=== PATIENT | female | born 2000 | race Asian ===

== ENCOUNTER 2021-05-02 11:23 | Emergency (ER) | payer OTHER, MEDICAID, SELFPAY ==
[2021-05-02 11:47] VITALS: BP 150/91; PULSE 71; RESP 16; TEMP 36.6; O2SAT 99; BMI 23.3
--- NOTE | 2021-05-02 12:35 | ED.FEMALEGU ---
HPI - Female Genitourinary <Roberto Ching PA-C - Last Filed: 05/02/21 15:27> General Chief complaint: Urogenital-Female Stated complaint: Poss UTI but now has chills and cramps/spotting Time Seen by Provider: 05/02/21 12:03 Source: patient Mode of arrival: Family Vehicle Limitations: no limitations History of Present Illness HPI Narrative: Ameena presents today with chief complaint of burning with urination increased frequency of urination that started 2 days ago. She also had associated symptoms of chills today. She has had a urinary tract infection in the past and is concerned that she may have 1 now. She reports lower abdominal cramping but states that she is currently ovulating so attributes the cramping to that. She denies any significant nausea, vomiting, vaginal irritation, vaginal discharge, rash, diarrhea, constipation or any other acute concerns or complaints at this time. Related Data Allergies Allergy/AdvReac Type Severity Reaction Status Date / Time No Known Drug Allergies Allergy Verified 05/02/21 11:46 Review of Systems <Roberto Ching PA-C - Last Filed: 05/02/21 15:27> Review of Systems Narrative: As per HPI Patient History <Roberto Ching PA-C - Last Filed: 05/02/21 15:27> alcohol intake frequency: 0-2 drinks per day Alcohol type: hard liquor Substance Use Type: does not use Exam <BEBA Sinclair Last Filed: 05/02/21 15:27> Narrative Exam Narrative: Exam Narrative: Const General: cooperative, healthy appearing, comfortable, no acute distress, well developed and well groomed Nutritional Appearance: average body habitus Orientation: alert and oriented x3 HENMT Head: normal to inspection and atraumatic Ears: hearing grossly normal bilaterally Nose: external nose normal and nares normal Face and sinus: normal facial exam Neck Neck: normal visual inspection and supple Resp Effort & Inspection: normal respiratory effort, able to speak in complete sentences, no audible wheezes, not labored, no nasal flaring and no respiratory distress GI Normal to inspection, nondistended, normal bowel sounds, nontender to palpation No CVA tenderness Neuro General: alert, oriented x3, gait normal, tone normal and moves all extremities Cognition: normal cognition Speech: speech normal Gait: normal gait Psych Appearance: grossly normal and well kempt Mental Status: mental status grossly normal Speech and Movement: speech and movement normal Mood: congruent mood Affect: normal affect Initial Vital Signs Initial Vital Signs: Vital Signs Temperature 97.9 F 05/02/21 11:47 Pulse Rate 71 05/02/21 11:47 Respiratory Rate 16 05/02/21 11:47 Blood Pressure 150/91 H 05/02/21 11:47 Pulse Oximetry 99 05/02/21 11:47 <Davina Maldonado MD - Last Filed: 05/03/21 08:43> Initial Vital Signs Initial Vital Signs: Vital Signs Temperature 97.9 F 05/02/21 11:47 Pulse Rate 71 05/02/21 11:47 Respiratory Rate 16 05/02/21 11:47 Blood Pressure 150/91 H 05/02/21 11:47 Pulse Oximetry 99 05/02/21 11:47 Course <Roberto Ching PA-C - Last Filed: 05/02/21 15:27> Orders Ordered: Discontinued Medications Azithromycin (Azithromycin 250 Mg Tablet) 1,000 mg PO NOW ONE Stop: 05/02/21 15:20 Last Admin: 05/02/21 15:24 Dose: 1,000 mg Documented by: ATAYLOR Vital Signs Vital signs: Vital Signs - 8 hr 05/02/21 11:47 Temperature 97.9 F Pulse Rate 71 Respiratory Rate 16 Blood Pressure 150/91 H Pulse Oximetry 99 <Davina Maldonado MD - Last Filed: 05/03/21 08:43> Orders Ordered: Discontinued Medications Azithromycin (Azithromycin 250 Mg Tablet) 1,000 mg PO NOW ONE Stop: 05/02/21 15:20 Last Admin: 05/02/21 15:24 Dose: 1,000 mg Documented by: ATAYLOR Vital Signs Vital signs: Vital Signs - 8 hr 05/02/21 11:47 Temperature 97.9 F Pulse Rate 71 Respiratory Rate 16 Blood Pressure 150/91 H Pulse Oximetry 99 MDM - Female Genitourinary <Roberto Ching PA-C - Last Filed: 05/02/21 15:27> Lab Data Labs: Lab Results 05/02/21 Range/Units 12:49 Ur Chlamydia DNA (PCR) Detected H N gonorrhoeae DNA (PCR) Not detected Point of Care Testing Test Results Negative Urine Dip Bedside Urine Glucose Negative Bedside Urine Bilirubin - Negative Bedside Urine Ketone - Negative Urine Specific [place] 1.020 Bedside Urine Occult Blood - Negative Bedside Urine pH 6 Bedside Urine Protein - Negative Bedside Urine Urobilinogen - Negative Bedside Urine Nitrite - Negative Bedside Urine Leukocytes - Negative Esterase MDM Narrative Medical decision making narrative: Urine is grossly normal at this time. Physical examination is also grossly normal. She tested positive for chlamydia and was treated with azithromycin here in the emergency department. Wet prep was negative and she tested negative for gonorrhea. Return precautions were discussed with the patient. Patient verbalizes understanding and agrees to plan and has no further concerns at this time. Thank you A [id number] system was used with the dictation of this note. Please disregard any spelling or grammatical errors. <Davina Maldonado MD - Last Filed: 05/03/21 08:43> Lab Data Labs: Lab Results 05/02/21 Range/Units 12:49 Ur Chlamydia DNA (PCR) Detected H N gonorrhoeae DNA (PCR) Not detected Point of Care Testing Test Results Negative Urine Dip Bedside Urine Glucose Negative Bedside Urine Bilirubin - Negative Bedside Urine Ketone - Negative Urine Specific [place] 1.020 Bedside Urine Occult Blood - Negative Bedside Urine pH 6 Bedside Urine Protein - Negative Bedside Urine Urobilinogen - Negative Bedside Urine Nitrite - Negative Bedside Urine Leukocytes - Negative Esterase Discharge Plan Departure Patient Disposition: Home Clinical Impression: Chlamydia infection Activity Restrictions/Additional Instructions: It was nice to meet you this afternoon. Please contact your last sexual partner and notify them of your infection. They will likely need to get treatment and/or tested. I expect her symptoms to improve over the next week. Please abstain from any sexual activity for 1-2 weeks. If you experience continued symptoms despite the treatment please return for re-evaluation. Thank you Roberto Ching PA-C <Davina Maldonado MD - Last Filed: 05/03/21 08:43> Cosign ED Attending Cosignature Attestation: I was immediately available in the department for consultation throughout this patient's visit. I agree with documentation as above. Davina Maldonado MD
[2021-05-02 14:21] LABS: Urine N gonorrhoeae NOT DETECTED
[2021-05-02 15:12] LABS: Urine Chlamydia DETECTED
[2021-05-02] MEDS: AZITHROMYCIN 250 MG TABLET 1000 MG PO (15:24)
== END 2021-05-02 15:34 | disposition home or self-care (01) ==
PROVIDERS: Emergency Provider Physician Assistant
DX: A74.9 Chlamydial infection, unspecified (principal)
CPT/HCPCS: 81003; 81025; 87210; 87491; 87591; 99283